=== PATIENT | female | born 1980 | race Caucasian/White ===

== ENCOUNTER 2017-09-22 18:15 | Inpatient (IN) | payer OTHER ==
[~2017-09-22] VITALS: Ht 149.9 cm; Wt 58.5 kg
[2017-09-22] MEDS ORDERED: CARBOPROST 250 MCG/ML AMP IM PRN (20:00)
[2017-09-22] MEDS ORDERED: METHYLERGONOVINE 0.2 MG/ML AMP IM PRN (20:00)
[2017-09-22] MEDS ORDERED: PROMETHAZINE 25 MG/ML VIAL IVP PRN (20:00)
[2017-09-22] MEDS ORDERED: NALBUPHINE 10 MG/ML AMP IVP PRN (20:00)
[2017-09-22] MEDS ORDERED: AMPICILLIN 1,000 MG in NACL 0.9% 50 ML IV SCH (20:00)
[2017-09-22] MEDS ORDERED: BETAMETH ACET/BETAMETH NA PH 30 MG/5 ML VIAL IM SCH (21:00)
[2017-09-22] MEDS ORDERED: OXYTOCIN 10 UNITS/ML VIAL IM SCH (21:00)
[2017-09-22] MEDS ORDERED: OXYTOCIN 20 UNITS in LACTATED RINGERS 1,000 ML IV SCH (21:00)
[2017-09-22] MEDS ORDERED: AMPICILLIN 2,000 MG in NACL 0.9% 100 ML IV SCH (21:00)
[2017-09-22] MEDS ORDERED: LACTATED RINGERS 1,000 ML IV SCH (21:00)
[2017-09-22] MEDS ORDERED: AMPICILLIN 2,000 MG VIAL ONE (21:19)
[2017-09-22] MEDS ORDERED: BETAMETH ACET/BETAMETH NA PH 30 MG/5 ML VIAL IM ONE (21:19)
[2017-09-22 21:22] LABS: BASOPHILS % (AUTO) 0.2 % (0.0-2.0); EOSINOPHILS % (AUTO) 0.3 % (0.0-4.0); HEMATOCRIT 37.4 % (36-48); HEMOGLOBIN 12.5 g/dL (12.0-16.0); LYMPHOCYTES # (AUTO) 2.3 K/uL (2.5-16.5); LYMPHOCYTES % (AUTO) 18.1 % (20.5-51.1); MEAN CORPUSCULAR HEMOGLOBIN 32 pg (27-31); MEAN CORPUSCULAR HGB CONC 34 g/dL (33-37); MEAN CORPUSCULAR VOLUME 96.1 fL (80-94); MONOCYTES # (AUTO) 0.6 K/uL (0.8-1.0); NEUTROPHILS # (AUTO) 9.7 K/uL (1.8-7.7); NEUTROPHILS % (AUTO) 76.4 % (42.2-75.2); PLATELET COUNT (AUTO) 189 K/uL (140-450); RED CELL DISTRIBUTION WIDTH 13.1 % (11.6-13.7); WHITE BLOOD COUNT (AUTO) 12.6 K/uL (4.8-10.8)
[2017-09-22 21:38] VITALS: BP 93/62
[2017-09-22 21:53] LABS: ANION GAP 14.7 (8-16); CARBON DIOXIDE 22.1 mmol/L (21-32); POTASSIUM 3.8 mmol/L (3.5-5.1)
[2017-09-22 21:54] LABS: ALBUMIN 2.8 g/dL (3.4-5.0); CREATININE 0.8 mg/dL (0.6-1.3); TOTAL BILIRUBIN 0.2 mg/dL (0.0-1.0)
[2017-09-22] MEDS ORDERED: ROPIVACAINE 0.2%/NS PREMIX 250 ML EPI ONE (22:58)
[2017-09-23 00:17] LABS: APPEARANCE,URINE CLEAR (CLEAR); BILIRUBIN,URINE NEGATIVE (NEGATIVE); BLOOD, URINE 1+ (NEGATIVE); COLOR,URINE YELLOW (YELLOW); LEUKOCYTE ESTERASE ,URINE NEGATIVE (NEGATIVE); NITRITE, URINE NEGATIVE (NEGATIVE); UGLUCOSE NEGATIVE (NEGATIVE)
[2017-09-23] MEDS ORDERED: AMPICILLIN 2,000 MG VIAL ONE (00:20)
[2017-09-23 00:55] LABS: RBC,URINE 3-10 (FEW) /HPF (0-5)
[2017-09-23 00:56] LABS: WBC,URINE 0-5 (RARE) /HPF (0-5)
[2017-09-23] MEDS ORDERED: OXYTOCIN 10 UNITS/ML VIAL ONE ×2 (00:59→01:12)
[2017-09-23] MEDS ORDERED: OXYTOCIN 20 UNITS/LR PREMIX 1,000 ML IV ONE (01:01)
[2017-09-23] MEDS ORDERED: LIDOCAINE MPF 1% - 5 mL VIAL 0 ML ONE (01:04)
--- NOTE | 2017-09-23 11:28 | NUR ---
PATIENT HAS BEEN SCREENED AND CATEGORIZED LOW NUTRITION RISK. PATIENT WILL BE SEEN WITHIN 7 DAYS OF ADMISSION. 09/29/[address]
[2017-09-24] MEDS ORDERED: MEASLES, MUMPS, AND RUBELLA 1 VIAL SQVAC PRN (07:55)
[2017-09-24] MEDS ORDERED: BENZOCAINE/MENTHOL 20%-0.5% 60 GM CAN TP PRN (07:55)
[2017-09-24] MEDS ORDERED: TEMAZEPAM 15 MG CAP PO PRN (07:55)
[2017-09-24 09:00] LABS: HEMATOCRIT 35.7 % (36-48); HEMOGLOBIN 11.8 g/dL (12.0-16.0)
[2017-09-24] MEDS: IBUPROFEN 800 MG TAB PO PRN ×2 (09:07→18:46)
[2017-09-24] MEDS ORDERED: DOCUSATE SOD/SENNA 50/8.6 MG 1 TAB PO SCH (21:00)
[2017-09-25] MEDS: IBUPROFEN 800 MG TAB PO PRN (08:46)
== END 2017-09-25 17:55 | disposition home or self-care (01) | DRG 560 ==
LOC: MLD 18:15 → MFCC 09-23 04:58
PROVIDERS: ADMIT Obstetrics & Gynecology; ATTEND Obstetrics & Gynecology
PROC: 10E0XZZ Delivery of Products of Conception, External Approach (ICD-10-PCS; principal; 2017-09-23)
PROC: 3E0R3BZ Introduction of Anesthetic Agent into Spinal Canal, Percutaneous Approach (ICD-10-PCS; 2017-09-23)
PROC: 00HU33Z Insertion of Infusion Device into Spinal Canal, Percutaneous Approach (ICD-10-PCS; 2017-09-23)
PROC: 0HQ9XZZ Repair Perineum Skin, External Approach (ICD-10-PCS; 2017-09-23)
PROC: 3E0234Z Introduction of Serum, Toxoid and Vaccine into Muscle, Percutaneous Approach (ICD-10-PCS; 2017-09-25)
DX: O99.824 Streptococcus B carrier state complicating childbirth (principal); Z23 Encounter for immunization; O70.0 First degree perineal laceration during delivery; Z37.0 Single live birth; Z3A.36 36 weeks gestation of pregnancy
CPT/HCPCS: 36415; 51702; 59409; 76815; 80053; 81001; 85018; 85025; 86886; 86900; 86901; 90715; J0290; J0702; J2001; J2590; J2795; J7120; Q0092